=== PATIENT | female | born 1975 | race Caucasian/White ===

== ENCOUNTER → 2024-12-01 | Day surgery (SDC) | payer BC, OTHER ==
[~2024-12-01] MED LIST: FENTANYL CITRATE/PF 100MCG/2 ML INJ ONE; GLUCAGON FOR INJ 1 MG VIAL ONE; LIDOCAINE HCL 2% LOCAL INJ 5 ML SDV VIAL INJ ONE; PROPOFOL IV EMULSION 50 ML IV ONE
[2024-12-01] MEDS: LACTATED RINGER'S 1,000 ML ONE (13:01)
[2024-12-01 15:05] VITALS: BP 131/90; PULSE 88; RESP 17; TEMP 98; O2SAT 99
== END | disposition home or self-care (01) ==
LOC: OR 12:53
PROVIDERS: ATTEND Internal Medicine Gastroenterology
DX: Z12.11 Encounter for screening for malignant neoplasm of colon (principal); K64.8 Other hemorrhoids; K57.30 Diverticulosis of large intestine without perforation or abscess without bleeding; K29.50 Unspecified chronic gastritis without bleeding; K21.00 Gastro-esophageal reflux disease with esophagitis, without bleeding; K31.89 Other diseases of stomach and duodenum; K62.89 Other specified diseases of anus and rectum; J45.909 Unspecified asthma, uncomplicated; E66.01 Morbid (severe) obesity due to excess calories; E66.812 Obesity, class 2; Z68.37 Body mass index [BMI] 37.0-37.9, adult; Z80.0 Family history of malignant neoplasm of digestive organs; Z88.6 Allergy status to analgesic agent; Z01.818 Encounter for other preprocedural examination
CPT/HCPCS: 43239; 45380; 81025; J1610; J2003; J2470; J2704; J3010; J7121; 45378